=== PATIENT | female | born 1985 | race Caucasian/White ===

== ENCOUNTER → 2017-07-06 | Outpatient (CLI) | payer MEDICAID ==
[~2017-07-06] MED LIST: LORTAB 5/500 501 TAB PO
--- NOTE | 2017-07-08 14:32 | RADIOLOGY REPORT PS360 ---
US BIOPHYSICAL PROFILE, US PREG [id number], US BIOPHYSICAL PROFILE, SD RATIO UMBILICAL ARTERY, S D RATIO UMBILICAL ARTERY: Indication: TWINS HIGH RISK, GROWTH ORDERING PHYSICIAN: Max Mendiola MD PATIENT AGE: 32 years There is a twin gestation. FETUS A: Cephalic presentation with a posterior grade 2 placenta. Respiratory and heart motion identified. Average ultrasound age is 36 weeks 0 days. BPD 36 weeks 2 day, with the 36 weeks 3 days, HC 35 weeks 6 day, abdominal or complex 35 weeks 5 days and FL 35 weeks 5 days. Heart rate is 1 65 bpm. No obvious anomalies demonstrated. There is a three-vessel cord. Umbilical artery evaluation performed with a resistive index of 0.5 and an SD ratio of 2.0. Biophysical profile of fetus A is 8 of 8. Estimated weight 2756 g which is 65th percentile. FETUS B: Breech presentation. Anterior grade 2 placenta. breathing and heart motion noted. Average ultrasound age is 34 weeks 2 days with an estimate weight of 2363 g which is 21 percentile based on last menstrual period. BPD 34 weeks 0 days, OFD 35 weeks 4 days, HC 34 weeks 3 days, abdominal circumference 34 weeks 2 days, FL 34 weeks 2 days. All parameters correlate. Biophysical profile is 8 of 8. Umbilical artery evaluation reveals a resistive index of 0.74 and an SD ratio of 3.8. Three-vessel cord. No obvious anomalies. IMPRESSION: There is a twin gestation. Fetus A is cephalic with an average ultrasound age of 36 weeks 0 days. Fetus B is breech with an average ultrasound age of 34 weeks 2 days. The SD ratio of fetus B is slightly elevated at 3.8. Please see above for detail.
== END ==
LOC: RAD 10:07
DX: Z36.85 Encounter for antenatal screening for Streptococcus B (principal)

== ENCOUNTER 2017-07-25 02:03 | Inpatient (IN) | payer MEDICAID ==
[~2017-07-25] VITALS: Ht 182.9 cm; Wt 94.4 kg
--- OUTSIDE RECORDS SUMMARY | 2017-07-25 02:06 | External Medical Summary Rpt | CCD ---
Author Author , [facility] Organization [employer] Address Unknown Phone [email or web address] Purpose Continuity of Care Document - 01-10-2015 through 2016 Problems Code Diagnosis DOS Provider Status B18.2 Chronic viral hepatitis C E03.9 Hypothyroid ism, unspecified K29.70 Gastritis, unspecified , without bleeding R94.5 Abnormal results of liver function studies Results Labs Lab Lab Date Result Refere Interp Status Commen Order Detail nces retati t Range on Glucose [Presence] in Urine by Test strip --1 hour post 75 g glucose PO (05-06-2017 15:56) Glucose NEGATIV complet 017 E ed [Presen 15:56 ce] in Urine by Test strip Glucose TNP complet 017 ed [Presen 15:56 ce] in Urine by Automat ed test strip Fasting TNP 60mg/ complet 017 dL - ed glucose 15:56 105mg /dL [Mass/v olume] in Serum or Plasma
--- OUTSIDE RECORDS SUMMARY | 2017-07-25 02:06 | External Medical Summary Rpt | CCD ---
Author Author [employer] Organization [employer] Address Unknown Phone Unavailable Purpose Continuity of Care Document - through 2016
--- OUTSIDE RECORDS SUMMARY | 2017-07-25 02:06 | External Medical Summary Rpt | CCD ---
Author Author , [facility] Organization [employer] Address Unknown Phone [email or web address] Purpose Continuity of Care Document - 01-10-2015 [...]
--- OUTSIDE RECORDS SUMMARY | 2017-07-25 02:07 | External Medical Summary Rpt | CCD ---
Demographics Preferred Language Australian Marital Status Unknown Latter Day Affiliation Unknown Race Unknown Ethnic Group Unknown Author Author , [facility] Organization [employer] Address Unknown Phone Immunization Unable to retrieve immunization data due to connection failure with Immunization Registry. Please try again later.
--- OUTSIDE RECORDS SUMMARY | 2017-07-25 02:07 | External Medical Summary Rpt | CCD ---
Demographics Preferred Language Nigerian Marital Status Unknown Uatsdin Affiliation Unknown Race Unknown Ethnic Group Unknown Author Author , [facility] Organization [facility] Address Unknown Phone Immunization Unable to retrieve immunization data due to connection failure with Immunization Registry. Please try again later.
--- OUTSIDE RECORDS SUMMARY | 2017-07-25 02:08 | External Medical Summary Rpt ---
Author Author KAREN Stacie, [employer] Organization [employer] Address Unknown Phone Unavailable Results CBC W Auto Differential panel in Blood Observa Value Referen Units Interpr Notes Date tion ce etation Range Basophils 0 - 0.2 K/MM3 Normal No May 06 informati 2016 3:56 [#/volume on in PM ] in source Blood by data Automated count Basophils 0.1 - 2.0 % Normal No May 06 /100 informati 2017 3:56 leukocyte on in PM s in source Blood by data Automated count Eosinophi 0.0 - 0.4 K/mm3 Normal No May 06 ls informati 2016 3:56 [#/volume on in PM ] in source Blood by data Automated count Eosinophi 0.1 - % Normal No May 06 ls/100 12.0 informati 2016 3:56 leukocyte on in PM s in source Blood by data Automated count Granulocy 1.8 - 7.8 K/mm3 High No May 06 mariah informati 2017 3:56 [#/volume on in PM ] in source Blood by data Automated count Granulocy 37.0 - % Normal No May 06 mariah/100 80.0 informati 2016 3:56 leukocyte on in PM s in source Blood by data Automated count Hematocri 37.0 - % Low No May 06 t [Volume 47.0 informati 2016 3:56 on in PM Fraction] source of Blood data Hemoglobi 12.2 - g/dL Low No May 06 n 16.2 informati 2016 3:56 [Mass/vol on in PM ume] in source Blood data Lymphocyt 0.7 - 4.5 K/mm3 Normal No May 06 es informati 2016 3:56 [#/volume on in PM ] in source Unspecifi data ed specimen by Automated count Lymphocyt 10 - 50.0 % Normal No May 06 es informati 2016 3:56 [#/volume on in PM ] in source Unspecifi data ed specimen by Automated count Erythrocy 27 - 31.2 pg Normal No May 06 te mean informati 2016 3:56 corpuscul on in PM ar source hemoglobi data n [Entitic mass] Erythrocy 31.8 - g/dl Normal No May 06 te mean 35.4 informati 2016 3:56 corpuscul on in PM ar source hemoglobi data n concentra tion [Mass/vol ume] by Automated count Erythrocy 82.2 - fl Normal No May 06 te mean 97.8 informati 2016 3:56 corpuscul on in PM ar volume source [Entitic data volume] by Automated count Monocytes 0.1 - 1.0 K/mm3 Normal No May 06 inform2016 3:56 [#/volume on in PM ] in source Blood by data Automated count Monocytes 1.7 - 9.3 % Normal No May 06 /100 informati 2016 3:56 leukocyte on in PM s in source Blood by data Automated count Platelet 7.4 - fl Normal No May 06 mean 10.4 informati 2016 3:56 volume on in PM [Entitic source volume] data in Blood by Automated count Platelets 142 - 424 K/mm3 Normal No May 06 inform2016 3:56 [#/volume on in PM ] in source Blood data Erythrocy 4.2 - 5.4 M/mm3 Low No May 06 mariah informati 2016 3:56 [#/volume on in PM ] in source Amniotic data fluid Erythrocy 11.5 - % Normal No May 06 te 17.5 informati 2016 3:56 distribut on in PM ion width source [Entitic data volume] by Automated count Leukocyte 4.8 - K/MM3 High No May 06 s 10.8 informati 2016 3:56 [#/volume on in PM ] in source Blood data Glucose [Presence] in Urine by Test strip --1 hour post 75 g glucose PO Observa Value Referen Units Interpr Notes Date tion ce etation Range Glucose No mg/dL No No May 06 [Mass/vol informati informati informati 2016 3:56 ume] in on in on in on in PM Serum or source source source Plasma data data data --1 hour post dose glucose Glucose NEGATIV No mg/ml No No May 06 E informa informa informa 2016 [Presen tion in tion in tion in 3:56 PM ce] in source source source Urine data data data by Test strip Glucose TNP No mg/dL No No May 06 informa informa informa 2016 [Presen tion in tion in tion in 3:56 PM ce] in source source source Urine data data data by Automat ed test strip Fasting TNP 60 - mg/dL No No May 06 105 informa informa 2016 glucose tion in tion in 3:56 PM source source [Mass/v data data olume] in Serum or Plasma AFP Tetra Observa Value Referen Units Interpr Notes Date tion ce etation Range Results REPORT No No No No Mar 11 informa informa informa informa 2017 tion in tion in tion in tion in 3:52 PM source source source source data data data data Alpha-1-F No No No No Mar 11 etoprotei informati informati informati informati 2016 3:52 n on in on in on in on in PM [Mass/vol source source source source ume] in data data data data Serum or Plasma Alpha-1-F No No No No Mar 11 etoprotei informati informati informati informati 2016 3:52 n on in on in on in on in PM [Multiple source source source source of the data data data data median] adjusted in Serum or Plasma Choriogon No No No No Mar 11 adotropin informati informati informati informati 2016 3:52 on in on in on in on in PM [Units/vo source source source source lume] in data data data data Serum or Plasma Choriogon No No No No Mar 11 adotropin informati informati informati informati 2016 3:52 on in on in on in on in PM [Multiple source source source source of the data data data data median] adjusted in Serum or Plasma Estriol.u No No No No Mar 11 nconjugat informati informati informati informati 2016 3:52 ed on in on in on in on in PM [Mass/vol source source source source ume] in data data data data Serum or Plasma Estriol.u No No No No Mar 11 nconjugat informati informati informati informati 2016 3:52 ed on in on in on in on in PM [Multiple source source source source of the data data data data median] adjusted in Serum or Plasma Inhibin A No No No No Mar 11 informati informati informati informati 2017 3:52 [Mass/vol on in on in on in on in PM ume] in source source source source Serum data data data data Inhibin A No No No No Mar 11 informati informati informati informati 2017 3:52 [Multiple on in on in on in on in PM of the source source source source median] data data data data adjusted in Serum Neural No No No No Perico 30 tube informati informati informati informati 2017 3:52 defect on in on in on in on in PM risk in source source source source Fetus data data data data Trisomy No No No No Mar 11 21 risk informati informati informati informati 2017 3:52 in Fetus on in on in on in on in PM source source source source data data data data Second SCREEN No No No No Mar 11 trimest NEGATIV informa informa informa informa 2017 er quad E tion in tion in tion in tion in 3:52 PM source source source source materna data data data data l screen [interp retatio n] in Serum Narrati ve Trisomy No No No No Mar 11 21 risk informati informati informati informati 2017 3:52 based on on in on in on in on in PM maternal source source source source age in data data data data Fetus Trisomy No No No No Mar 11 18 risk informati informati informati informati 2017 3:52 in Fetus on in on in on in on in PM source source source source data data data data Trisomy No No No No Feb 30 18 risk informati informati informati informati 2017 3:52 based on on in on in on in on in PM maternal source source source source age in data data data data Fetus Second COMMENT No No No SCREEN Mar 11 trimest informa informa informa NEGATIV 2017 er quad tion in tion in tion in ETHIS 3:52 PM source source source RESULT materna data data data IS l SCREEN screen NEGATIV [interp E FOR retatio n] in OSB AND Serum Narrati DOWNSYN ve DROME. TRISOMY 18 RISKS CANNOT BE DETERMI MARISOL FOR TWINPRE GNANCIE S. THE AFP MOM AND PATIENT SPECIFI C RISKS ARECALC ULATED BASED ON GESTATI ONAL AGE AND THE CLINICA LINFORM ATION PROVIDE D. SCREENI NG EFFICIE NCY IS DIMINIS HED INTWIN PREGNAN CIES. THIS TEST IDENTIF IES UP TO 48% OF OPENNEU RAL TUBE DEFECTS . CLOSED NEURAL TUBE DEFECTS AND SOMEOPE N DEFECTS MAY NOT BE DETECTE D BY THIS TEST. THE DETECTI ONRATE OF DOWN SYNDROM E OF TWIN PREGNAN CIES HAS NOT BEENDET ERMINED FOR FOUR MARKERS , BUT IS AT LEAST 50% BASED ONTRIPL E SCREEN DATA. THE [place] COLLEGE OF OBSTETR ICIANSA ND GYNECOL OGISTS RECOMME NDS AMNIOCE NTESIS BE OFFERED TOWOMEN AGE 35 AND OLDER. RECALCU LATIONS ARE NOT RECOMME NDEDWHE N GESTATI ONAL DATING BY LMP AND ULTRASO UND ARE WITHIN 10DAYS. Gestation No No No No Mar 11 al age informati informati informati informati 2017 3:52 on in on in on in on in PM source source source source data data data data Gestati KILEY No No No No Mar 11 onal informa informa informa informa 2017 age tion in tion in tion in tion in 3:52 PM method source source source source data data data data Age at No No No No Mar 11 delivery informati informati informati informati 2017 3:52 on in on in on in on in PM source source source source data data data data Mother' CAUCASI No No No No Mar 11 s race AN informa informa informa informa 2017 tion in tion in tion in tion in 3:52 PM source source source source data data data data Body No No No No Mar 11 weight informati informati informati informati 2017 3:52 on in on in on in on in PM source source source source data data data data Insulin NOT No No No No Mar 11 PROVIDE informa informa informa informa 2017 depende D tion in tion in tion in tion in 3:52 PM nt source source source source diabete data data data data s mellitu s [Presen ce] Multipl TWINS No No No No Mar 11 e informa informa informa informa 2017 preganc tion in tion in tion in tion in 3:52 PM y source source source source data data data data Free T3 Observa Value Referen Units Interpr Notes Date tion ce etation Range T3 Free 3.89 2.00 - pg/mL No No Sep 10 4.40 informa informa 2016 tion in tion in 5:39 PM source source data data Free T4 Observa Value Referen Units Interpr Notes Date tion ce etation Range Thyroxi 1.79 0.80 - ng/dL No No Sep 10 ne (T4) 2.00 informa informa 2015 free tion in tion in 5:38 PM [Mass/v source source olume] data data in Serum or Plasma TSH Observa Value Referen Units Interpr Notes Date ti ce etation Range Thyrotr 7.130 0.270 - mcIU/mL High No Apr 05 opin 4.200 informa 2015 [Units/ tion in 7:39 PM volume] source in data Serum or Plasma Free T4 Observa Value Referen Units Interpr Notes Date ti ce etation Range Thyroxi 1.31 0.93 - ng/dL No No Apr 05 ne (T4) 1.70 informa informa 2015 free tion in on in 7:39 PM [Mass/v source source olume] data data in Serum or Plasma Free T3 Observa Value Referen Units Interpr Notes Date ce etation Range T3 Free 3.96 2.00 - pg/mL No No Apr 05 4.40 informa informa 2015 tion in tion in 7:39 PM source source data data HCV [facility] Observa Value Referen Units Interpr Notes Date ti ce etation Range Ordered by an unspecified provider HCV 1a or No No No Cannot Apr 10 Genotyp 1b informa informa a 2015 ing by tion in tion in in further 12:21 PCR source source source PM data data data subtype d into Type 1a or Type 1b due to\\.br\\ high conserv ation of the 5' untrans lated region of the HCV\\.br \\genome . In additio n, Type 6 virus may be misclas sified as\\.br\\ Type 1 in some cases. The Hepatit is C Virus High-Re solutio n\\.br\\G enotype by Sequenc ing test ([facility] test code [id number] )\\.br\\p rovides a higher level of subtype resolut ion.\\.b r\\INTER PRETIVE INFORMA TION: Hepatit is C Genotyp ing\\.br \\Hepati tis C Viral RNA is tested using reverse transcr iption\\ .br\\lizzy ymerase chain reactio n (RT-PCR ) to amplify a specifi c portion \\.br\\of the 5' untrans lated region (5' UTR) of the viral genome. The\\.br \\amplif ied nucleic acid is sequenc ed bi-dire ctional ly using\\. br\\dye- termina tor chemistry physics teacher ry (NABOR). Sequenc ing data is compare d to a\\.br\\d atabase of charact erized sequenc es.\\.br \\Isolat es of hepatit is C virus are grouped into six major genotyp es\\.br\\ (1-6). These genotyp es are subtype d accordi ng to sequenc e\\.br\\c haracte ristics . Due to high conserv ation of the 5' un-almanza slated\\ .br\\reg ion of the HCV genome, this test has limitat ions in\\.br\\ differe ntiatin g subtype 1a from 1b. Therefo re, these subtype s will\\.b r\\be reporte d as 1a or 1b. In rare instanc es, Type 6 virus may be\\.br\\ misclas sified as Type 1.\\.br\\ Test develop ed and charact eristic s determi marisol by [facility]\\.b r\\Labor atories . See Complia nce Stateme nt B: [employer]CS HCV QT GR-[facility] Observa Value Referen Units Interpr Notes Date tion ce etation Range Hepatit 6.0 No log_IU No \\.br\\*H Apr 08 is C informa informa epatiti 2016 RNA tion in tion in s C 10:33 source source Virus AM data data Genotyp e by Sequenc ing will be added.\\ .br\\INT ERPRETI VE INFORMA TION: Hepatit is C Virus by Quantit ative PCR\\.br \\The quantit ative range of this assay is 1.2 - 8.0 log IU/mL (15-\\.b r\\100,0 00,000 IU/mL). \\.br\\Li diann of detecti on (LOD):\\ .br\\15 IU/mL (1.2 log IU/mL)\\ .br\\LOD values do not apply to diluted specime ns.\\.br \\An interpr etation of "Not Detecte d" does not rule out the presenc e\\.br\\o f PCR inhibit ors in the patient specime n or hepatit is C virus RNA\\.br \\concen tration s below the level of detecti on of the test. Care\\.b r\\shoul d be taken when interpr eting any single viral load\\.b r\\deter minatio n.\\.br\\ This test should not be used for blood donor screeni ng, associa esther\\.br \\re-ent ry protoco ls, or for screeni ng Human Cell, Tissues and\\.br \\Cellul ar Tissue- Based Product s (HCT/P) . HCV 900,000 No IU/mL No No Apr 08 IU-[facility] informa informa informa 2016 tion in tion in on in 10:33 source source source AM data data data HCV RNA Detecte Not No Abnorma No Apr 08 d Detecte informa l informa 2016 Interpr d tion in in 10:33 etation source source AM data data EER HCV See No No No To Apr 08 RNA Note informa informa informa downloa 2016 Qnt tion in in tion in d an 10:33 w/Genot source source source enhance AM ype data data data d Reflx-A report [facility]UP for this test go to:\\.br \\https: //erpt. [employer]\\.b r\\UserN abhi=B!o 6-3\\.br \\Passwo rd=pD-3 A=9 HCV [facility]il[facility] Observa Value Referen Units Interpr Notes Date tion ce etation Range HCV 1a or No No No Cannot Perico 9 Genotyp 1b informa informa informa be 2014 ing by tion in ti in in further 8:12 PM PCR source source source data data data subtype d into Type 1a or Type 1b due to\\.br\\ high conserv ation of the 5' untrans lated region of the HCV\\.br \\genome . In additio n, Type 6 virus may be misclas sified as\\.br\\ Type 1 in some cases. The Hepatit is C Virus High-Re solutio n\\.br\\G enotype by Sequenc ing test ([facility] test code [id number] )\\.br\\p rovides a higher level of subtype resolut ion.\\.b r\\INTER PRETIVE INFORMA TION: Hepatit is C Genotyp ing\\.br \\Hepati tis C Viral RNA is tested using reverse transcr iption\\ .br\\lizzy ymerase chain reactio n (RT-PCR ) to amplify a specifi c portion \\.br\\of the 5' untrans lated region (5' UTR) of the viral genome. The\\.br \\amplif ied nucleic acid is sequenc ed bi-dire ctional ly using\\. br\\dye- termina tor chemistry physics teacher ry (NABOR). Sequenc ing data is compare d to a\\.br\\d atabase of charact erized sequenc es.\\.br \\Isolat es of hepatit is C virus are grouped into six major genotyp es\\.br\\ (1-6). These genotyp es are subtype d accordi ng to sequenc e\\.br\\c haracte ristics . Due to high conserv ation of the 5' un-almanza slated\\ .br\\reg ion of the HCV genome, this test has limitat ions in\\.br\\ differe ntiatin g subtype 1a from 1b. Therefo re, these subtype s will\\.b r\\be reporte d as 1a or 1b. In rare instanc es, Type 6 virus may be\\.br\\ misclas sified as Type 1.\\.br\\ Test develop ed and charact eristic s determi marisol by [facility]\\.b r\\Labor atories . See Complia nce Stateme nt B: [employer]CS HCV QT GR-[facility] Observa Value Referen Units Interpr Notes Date tion ce etation Range Hepatit 5.8 No log_IU No \\.br\\*H Feb 6 is C informa informa epatiti 2014 RNA tion in tion in s C 7:02 PM source source Virus data data Genotyp e by Sequenc ing will be added.\\ .br\\INT ERPRETI VE INFORMA TION: Hepatit is C Virus by Quantit ative PCR\\.br \\The quantit ative range of this assay is 1.2 - 8.0 log IU/mL (15-\\.b r\\100,0 00,000 IU/mL). \\.br\\Li diann of detecti on (LOD):\\ .br\\15 IU/mL (1.2 log IU/mL)\\ .br\\LOD values do not apply to diluted specime ns.\\.br \\An interpr etation of "Not Detecte d" does not rule out the presenc e\\.br\\o f PCR inhibit ors in the patient specime n or hepatit is C virus RNA\\.br \\concen tration s below the level of detecti on of the test. Care\\.b r\\shoul d be taken when interpr eting any single viral load\\.b r\\deter minatio n.\\.br\\ This test should not be used for blood donor screeni ng, associa esther\\.br \\re-ent ry protoco ls, or for screeni ng Human Cell, Tissues and\\.br \\Cellul ar Tissue- Based Product s (HCT/P) . HCV 640,000 No IU/mL No No Perico 6 IU-[facility] informa informa informa 2015 tion in tion in tion in 7:02 PM source source source data data data HCV RNA Detecte Not No Abnorma No Perico 6 d Detecte informa l informa 2014 Interpr d tion in tion in 7:02 PM etation source source data data EER HCV See No No No To Feb 6 RNA Note informa informa informa downloa 2015 Qnt tion in tion in tion in d an 7:02 PM w/Genot source source source enhance ype data data data d Reflx-A report [facility] for this test go to:\\.br \\https: //erpt. [employer]\\.b r\\UserN abhi=g+6 TMq!\\.b r\\Passw ord=dQ- 5C4b Free T3 Observa Value Referen Units Interpr Notes Date tion ce etation Range T3 Free 4.14 2.00 - pg/mL No No Feb 3 4.40 informa informa 2014 tion in tion in 5:13 PM source source data data Free T4 Observa Value Referen Units Interpr Notes Date tion ce etation Range Thyroxi 1.22 0.93 - ng/dL No No Perico 3 ne (T4) 1.70 informa informa 2014 free tion in tion in 5:13 PM [Mass/v source source olume] data data in Serum or Plasma TSH Observa Value Referen Units Interpr Notes Date tion ce etation Range Thyrotr 6.650 0.270 - mcIU/mL High No Perico 3 opin 4.200 informa 2014 [Units/ tion in 5:11 PM volume] source in data Serum or Plasma Vit D 25-OH Observa Value Referen Units Interpr Notes Date tion ce etation Range Vitamin 40.4 30.0 - ng/mL No INTERPR January 11 D-25 120.0 informa ETIVE 2015 OH tion in INFORMA 2:37 PM source TION: data Vitamin D, 25-Hydr oxy\\.br \\\\.br\\< 20 ng/mL Deficie ncy\\.br \\20 - 29 ng/mL Insuffi ciency\\ .br\\30 - 80 ng/mL Optimum Level\\. br\\>120 ng/mL Possibl e Toxicit y\\.br\\\\ .br\\NOT E: For infants and childre n up to 17 years of age, the optimum level is >=20 ng/mL. This assay accurat [place] quantif ies the sum of vitamin D3, 25-Hydr oxy and vitamin D2, 25-Hydr oxy. Hep Prf-Ac Observa Value Referen Units Interpr Notes Date tion ce etation Range Hepatit Negativ Negativ No No No January 11 is B e e informa informa informa 2015 virus tion in tion in tion in 10:41 surface source source source AM Ag data data data [Presen ce] in Serum by Immunoa ssay Hep B Negativ Negativ No No No January 11 Core e e informa informa informa 2015 IgM tion in tion in tion in 10:40 source source source AM data data data Hepatit Negativ Negativ No No No January 11 is A e e informa informa informa 2015 virus tion in tion in tion in 10:40 Ab source source source AM [Units/ data data data volume] in Serum by Radioim munoass ay (KIRK) Hep C Positiv Negativ No Abnorma High January 11 Ab e e informa l / 2014 tion in cutoff 10:46 source ratio AM data (>= 5, Archite ct Anti-HC V). [facility] are Laborat ory recomme nds collect ing a new specime n and testing for Hepatit is C RNA Quantit ative PCR to confirm positiv ity and provide a baselin e viral load for monitor ing treatme nt efficac y. Glyco Observa Value Referen Units Interpr Notes Date tion ce etation Range Hemoglo 5.4 <=7.0 % No Initial January 11 bin informa 2015 A1c/Hem tion in Diagnos 9:40 AM oglobin source tic .total data Criteri in a\\.br\\< Blood 5.7 % Normal\\ .br\\5.7 - 6.4 % At risk for diabete s mellitu s\\.br\\> = 6.5 % Consist ent with diabete s mellitu s\\.br\\\\ .br\\Kaylene betes monitor ing\\.br \\Target Value (ADA recomme nded): < 7 % B12/ FA Observa Value Referen Units Interpr Notes Date tion ce etation Range CYANOCO 801 211 - pg/mL No No January 10 BALAMIN 946 informa informa 2015 .TRUE tion in tion in 6:23 PM source source data data Folic 8.12 4.50 - ng/mL No No January 10 Acid 37.30 informa informa 2015 Lvl tion in tion in 6:23 PM source source data data Iron/UIBC Observa Value Referen Units Interpr Notes Date tion ce etation Range Iron 117 30 - mcg/dL No No January 10 [Mass/v 160 informa informa 2015 olume] tion in tion in 6:10 PM in source source Serum data data or Plasma UIBC 254 112 - mcg/dL No No January 10 347 informa informa 2015 tion in tion in 6:10 PM source source data data Transfe 32 20 - 50 % No No January 10 rrin informa informa 2015 Sat tion in tion in 6:10 PM source source data data Lipid Scr Observa Value Referen Units Interpr Notes Date tion ce etation Range Cholest 187 <=200 mg/dL No < 200 January 10 cher informa 2015 [Percen tion in 6:09 PM tile] source Desirab data le\\.br\\ 200 - 239 Borderl ine High\\.b r\\>= 240 High TRIGLYC 143 <=150 mg/dL No < 150 January 10 ERIDES. informa 2015 TOTAL tion in Normal\\ 6:09 PM source .br\\150 data - 199 Borderl ine High\\.b r\\200 - 499 High\\.b r\\ >= 500 Very High CHOLEST 43 >=40 mg/dL No > 60 January 10 EROLS.I informa 2014 N HDL tion in Optimal 6:09 PM source \\.br\\40 data - 60 Accepta ble\\.br \\ < 40 Low LDL 115 <=100 mg/dL High < 100 January 10 Calcula 2014 esther 6:09 PM Optimal \\.br\\10 0 - 129 Near or above optimal \\.br\\13 0 - 159 Borderl ine High\\.b r\\160 - 189 High\\.b r\\ >= 190 Very High TSH Observa Value Referen Units Interpr Notes Date tion ce etation Range Thyrotr 4.620 0.270 - mcIU/mL High No January 10 opin 4.200 informa 2014 [Units/ tion in 6:09 PM volume] source in data Serum or Plasma Auto Diff Observa Value Referen Units Interpr Notes Date tion ce etation Range Neutrop 65.0 No % No No January 10 hils informa informa informa 2014 [#/volu tion in tion in tion in 5:48 PM me] in source source source Blood data data data by Automat ed count Lymphoc 27.1 No % No No January 10 ytes informa informa informa 2014 [#/volu tion in tion in tion in 5:48 PM me] in source source source Blood data data data by Automat ed count Monocyt 5.3 No % No No January 10 es informa informa informa 2014 [#/volu tion in tion in tion in 5:48 PM me] in source source source Blood data data data by Automat ed count Eos 1.8 No % No No January 10 Percent informa informa informa 2014 tion in tion in tion in 5:48 PM source source source data data data Baso 0.8 No % No No January 10 Percent informa informa informa 2015 tion in tion in tion in 5:48 PM source source source data data data Neut# 5.1 1.8 - x10(3)/ No No January 10 7.7 mcL informa informa 2015 tion in tion in 5:48 PM source source data data Lymph# 2.1 0.6 - x10(3)/ No No January 10 4.8 mcL informa informa 2014 tion in tion in 5:48 PM source source data data [place]# 0.4 0.0 - x10(3)/ No No January 10 1.3 mcL informa informa 2014 tion in tion in 5:48 PM source source data data Eos# 0.1 0.0 - x10(3)/ No No January 10 0.5 mcL informa informa 2014 tion in tion in 5:48 PM source source data data Baso# 0.1 0.0 - x10(3)/ No No January 10 0.2 mcL informa informa 2015 tion in tion in 5:48 PM source source data data CBC Observa Value Referen Units Interpr Notes Date tion ce etation Range LEUKOCY 7.8 4.0 - x10(3)/ No No January 10 MARIAH 11.0 mcL informa informa 2014 tion in tion in 5:48 PM source source data data Erythro 5.03 3.80 - x10(6)/ No January 10 cytes 5.10 mcL informa informa 2014 [#/volu tion in tion in 5:48 PM me] in source source Blood data data by Automat ed count Hemoglo 15.1 12.0 - gm/dL No January 10 bin 15.6 informa informa 2014 [Mass/v tion in tion in 5:48 PM olume] source source in data data Blood Hematoc 42.9 35.7 - % No January 10 rit 45.9 informa informa 2014 [Volume tion in tion in 5:48 PM source source Fractio data data n] of Blood by Automat ed count Erythro 85.3 82.5 - fL No January 10 cyte 99.8 informa informa 2014 mean tion in tion in 5:48 PM corpusc source source ular data data volume [Entiti c volume] by Automat ed count Erythro 29.9 27.0 - pg No No January 10 cyte 34.3 informa informa 2014 mean tion in tion in 5:48 PM corpusc source source ular data data hemoglo bin [Entiti c mass] by Automat ed count Erythro 35.1 32.1 - gm/dL No January 10 cyte 35.3 informa informa 2015 mean tion in tion in 5:48 PM corpusc source source ular data data hemoglo bin concent ration [Mass/v olume] by Automat ed count Erythro 12.6 11.5 - % No No January 10 cyte 15.0 informa informa 2015 distrib tion in tion in 5:48 PM ution source source width data data [Ratio] by Automat ed count Platele 304 144 - x10(3)/ No No January 10 ts 423 mcL informa informa 2015 [#/volu tion in tion in 5:48 PM me] in source source Blood data data by Automat ed count MPV 8.9 6.8 - fL No No January 10 10.8 informa informa 2015 tion in tion in 5:48 PM source source data data
--- OUTSIDE RECORDS SUMMARY | 2017-07-25 02:08 | External Medical Summary Rpt ---
[...] solutio n\\.br\\G enotype by Sequenc ing test ([facility] test code [id number] )\\.br\\p rovides a higher level of subtype [...] bi-dire ctional ly using\\. br\\dye- termina tor cosmetic chemist ry (NAB[place]). Sequenc ing data is compare [...] . See Complia nce Stateme nt B: [employer]/CS HCV QT GR-[facility] Observa Value Referen Units [...] for this test go to:\\.br \\https: //erpt. [employer]\\.b r\\UserN abhi=B!o 6-3\\.br \\Passwo rd=pD-3 A=9 HCV [...] by Sequenc ing test ([facility] test code [id number] )\\.br\\p rovides a higher level of subtype [...] bi-dire ctional ly using\\. br\\dye- termina tor cosmetic chemist ry ([place]). Sequenc ing data is compare [...] . See Complia nce Stateme nt B: [employer]/CS HCV QT GR-ARUP Observa Value Referen Units [...] for this test go to:\\.br \\https: //erpt. [employer]\\.b r\\UserN abhi=g+6 TMq!\\.b r\\Passw ord=dQ- 5C4b Free [...] data (>= 5, Archite ct Anti-HC V). [facility] are Laborat ory recomme nds collect ing [...] in 5:48 PM source source data data [place]# 0.4 0.0 - x10(3)/ No No January [...]
[2017-07-25 05:25] VITALS: BP 112/70
[2017-07-25] MEDS ORDERED: PRENATAL PLUS1 TA1 PO (05:34)
[2017-07-25] MEDS ORDERED: IRON TABLETS325 MG PO (05:34)
[2017-07-25] MEDS ORDERED: LEVOTHYROXIN0.075 M1 PO (05:35)
[2017-07-25 05:47] LABS: HEMOGLOBIN 10.4 g/dL (12.2-16.2); LYMPH # 2.8 K/mm3 (0.7-4.5); LYMPH % 25.1 % (10-50.0)
[2017-07-25 05:52] LABS: URINE BILIRUBIN - DIPSTICK NEGATIVE (NEG); URINE BLOOD NEGATIVE (NEG)
[2017-07-25 05:53] LABS: URINE SQUAMOUS CELLS 50-100 #/hpf (0-5)
[2017-07-25 05:58] LABS: AMPHETAMINES/METAMPHETAMINES NEGATIVE ng/mL (<1000)
[2017-07-25 06:37] LABS: ABO BLOOD TYPE A; RH BLOOD TYPE POSITIVE
[2017-07-25 08:13] LABS: URINE BILIRUBIN - DIPSTICK NEGATIVE (NEG); URINE BLOOD NEGATIVE (NEG)
--- NOTE | 2017-07-25 08:18 | Anesthesia Record ---
Anesthesia Record Part I Total IV fluids: 1800 EBL (ml): 600 Urine Output: 300 B/P: 111/64 % SaO2: 94 Pulse: 99 Resps: 12 Temp: 97.2 Patient is: Awake, Stable Stable to PACU at: 0815 at 0817
--- NOTE | 2017-07-25 08:19 | Anesthesia Record ---
Anesthesia Record Part II Discharge time: 08 Destination: OB PACU nurse assessment review? Yes Patient is: Awake, Stable Anesthesia complications? No at 0818
--- NOTE | 2017-07-25 08:25 | Operative Note ---
Procedure/Operative Record Date of Procedure: 07/25/17 Referring physician: Dr. Gill Pre-op diagnosis: 1. Term intrauterine with twins. 2. Malpresentation. 3. Desire for sterilization. Post-op diagnosis: 1. Term intrauterine with twins. 2. Malpresentation. 3. Desire for sterilization. Twin A: 9/9, 6 lb. 4 oz., 20 inch male , born at 0737 Twin B: 8/9, 5 lb. 8 oz., 18 inch female (breech extraction), with nuchal cord 2, born at 0738. Procedure performed: Primary low transverse cervical section with twin delivery, bilateral tubal ligation. Surgeon: Max Mendiola Machinist Bench(s): Dr. Richter Anesthesia: Spinal, STAVE LOG CUT OFF SAW OPERATOR Charlotte Indications: 1. Term intrauterine with twins. 2. Malpresentation. 3. Desire for sterilization. Description of procedure: After the patient was prepped and draped in usual fashion and spinal anesthesia was administered, a low Pfannenstiel incision was made across the midline, and the fat and fascia were in the usual fashion, bleeders being clamped and coagulated along the way. The peritoneum was entered with a knife, and extended above and below with Metzenbaum scissors. The bladder peritoneum was sharply and bluntly dissected free, and the bladder was protected with a bladder blade. The uterus was entered in low transverse fashion with a knife, and the incision was extended bluntly, bilaterally. The amniotic sac of twin A was ruptured for clear fluid, and twin A was found to be in the LOT position of the vertex. With appropriate fundal pressure, the head was easily delivered. The baby's naso-and oropharynx were bulb suctioned, and the baby cried spontaneously on the abdomen, as was delivered. The cord was clamped and cut and identified with a single cord clamp as twin A, 3 vessels were noted to be within the cord, and cord blood was obtained. The cord pH of twin A was 7.35. The baby was handed to the arms of the attending pediatricians, who assigned Apgars of 9 at 1 minute and 9 at 5 minutes to this and 4 ounce, 20 inch male , born at 0737. The amniotic sac of twin B was then ruptured for clear fluid. Twin B was found to be in a double footling breech presentation, and was easily delivered by breech extraction with appropriate fundal pressure. There was a nuchal cord 2, which was easily reduced. The baby's naso-and oropharynx were bulb suctioned, and the baby cried spontaneously on the abdomen, as was delivered. The cord was clamped and cut and identified with 2 cord clamps as twin B, 3 vessels were noted to be within the cord, and cord blood was obtained. The cord pH of twin B was 7.37. The baby was handed into the arms of the other attending public address technician, who assigned Apgars of 8 at 1 minute and 9 at 5 minutes to this 5 lbs. 8 oz., 18 inch female infant, born at 0738. Both babies were taken to the nursery in excellent condition, along with the father, been present in the operating room. The placentas were delivered manually, intact, and submitted to pathology. It should be noted that there was no meconium associated with either baby. A ring forceps was used to assure adequate drainage to the cervix; this was then passed off the field, as an unsterile instrument. The uterus was closed in 2 layers, the first a running locked suture of #1 Vicryl as an endometrial layer, and the second a running unlocked suture of #1 Vicryl as a myometrial layer, imbricating over the first. The bladder peritoneum was closed with a running unlocked suture of 2-0 Vicryl. Blood and clots within swept from the gutters, and the tubes and ovaries were inspected and found to be normal. The patient was again asked if she wished to proceed with tubal sterilization, and she concurred. Therefore, first the RIGHT tube and then the LEFT was grasped in its midsection, and the base of the tented up portion of each tube was crushed with a Megan clamp and ligated with 2-0 Vicryl. The intervening segment of each tube was excised with Metzenbaum scissors, and the stumps coagulated with a Bovie. There was no undue bleeding, no was there any other pathology. The peritoneum was grasped with 3 Megan clamps, and closed with a running semi-locked suture of 0 Vicryl. The muscle was approximated with a running unlocked suture of 0 Vicryl. The fascia was closed with a running locked suture of #1 Vicryl. The subcutaneous fat and Ramona's fascia were closed with a running unlocked suture of 2-0 Vicryl. The skin was closed with a subcuticular suture of 3-0 Vicryl, and appropriately dressed. The sponge and needle counts correct. The urine was clear in the Fitzgerald catheter. The estimated blood loss was 400 mL. A pelvic examination at the close of the procedure express blood and clots from the involuting uterus, with IV Pitocin running. The patient tolerated the procedure well, and was taken to PACU in excellent condition. Her blood type is A positive. Her rubella titer is immune. She plans to bottlefeed. It should be noted that the patient is group B strep positive, and was given preoperative antibiotics. EBL (ml): 400 Complications: None Specimens: Bilateral tubal segments at 0824
[2017-07-25 08:55] VITALS: BP 138/60
--- NOTE | 2017-07-25 14:47 | ACUTE CARE PROGRESS NOTE (QUA) ---
Progress Notes Subjective Date 07/25/17 Time 1446 Note This is day of surgery and delivery. The patient and both babies are doing well. She is afebrile. Vital signs stable. Wound clean. Abdomen soft. Lochia normal. Uterine fundus involuting well. Impression: Stable. Assessment/Plan This inpt stay is expected to cross 2 MNs from start of care Yes () at 1443
[2017-07-25 21:45] VITALS: BP 104/62
[2017-07-26 00:48] VITALS: BP 124/63
--- NOTE | 2017-07-26 05:35 | ACUTE CARE PROGRESS NOTE (QUA) ---
Progress Notes Subjective Date 07/26/17 Time 0534 Note This is /postop day number 1. The patient is afebrile. Vital signs stable. Wound clean. Abdomen soft. Lochia normal. Uterine fundus involuting well. The babies are doing well. Impression: Stable. Assessment/Plan This inpt stay is expected to cross 2 MNs from start of care Yes () at 0551
[2017-07-26 07:54] LABS: HEMOGLOBIN 8.5 g/dL (12.2-16.2)
[2017-07-26 09:42] VITALS: BP 101/50
--- NOTE | 2017-07-26 11:22 | PHARMACY CLINIC NOTE ---
Patient Demographics Patient Demographics Admission date: 07/25/17 Date: 07/26/17 Time: 1121 Allergies Coded Allergies: No Known Allergies (07/25/17) HEIGHT- FT: 6 IN: 0.00 K.405 VTE General Information Labs: Laboratory Tests 07/26 0645 Hematology Hgb (12.2 - 16.2 g/dL) 8.5 L Hct (37.0 - 47.0 %) 25.7 L Disclaimer The following section includes nursing documentation that has been pulled in for pharmacy review. VTE prophylaxis NQF [id number] VTE prophylaxis ordered? Yes Type of prophylaxis/treatment: ICD (POST OP) at 1122
--- NOTE | 2017-07-26 15:20 | ACUTE CARE PROGRESS NOTE (QUA) ---
Progress Notes Subjective Date 07/26/17 Time 1519 Note The patient is afebrile. Vital signs stable. Wound clean. Abdomen soft. Lochia normal. Uterine fundus involuting well. Hemoglobin 8.5 g, but clinically stable. Impression: Stable. Assessment/Plan This inpt stay is expected to cross 2 MNs from start of care Yes () at 1520
[2017-07-26 20:15] VITALS: BP 153/99
--- NOTE | 2017-07-27 07:58 | ACUTE CARE PROGRESS NOTE (QUA) ---
Progress Notes Subjective Date 07/27/17 Time 0758 Note This is and postop day number 2. The patient is afebrile. Vital signs stable. Wound clean. Abdomen soft. Lochia normal. Uterine fundus involuting well. Impression: Stable. Assessment/Plan This inpt stay is expected to cross 2 MNs from start of care Yes () at 0758
[2017-07-27 08:27] VITALS: BP 132/68
[2017-07-27 20:17] VITALS: BP 122/59
--- NOTE | 2017-07-28 06:22 | ACUTE CARE PROGRESS NOTE (QUA) ---
Progress Notes Subjective Date 07/28/17 Time 0621 Note This is /postop day number 3. The patient is afebrile. Vital signs stable. Wound clean. Abdomen soft. Lochia normal. Uterine fundus is involuting well. Hemoglobin 8.5 g, but clinically stable. She will be discharged today. Assessment/Plan This inpt stay is expected to cross 2 MNs from start of care Yes () at 0622
[2017-07-28] MEDS ORDERED: TORADOL10 MG PO (06:25)
--- NOTE | 2017-07-28 06:31 | DISCHARGE SUMMARY STANDARD ---
Discharge Summary Date of admission: 07/25/17 Date of discharge: 07/28/17 Patient condition: Stable Discharge diagnosis (es): 1. Term intrauterine (twins). 2. Anemia 0.3. Desire for sterilization. Hospital course: This 32-year-old 2, now para 2, AB 0 white female was admitted at 37-6/7 weeks with known twins. Her hemoglobin on admission was 10.4 g. She was also known to be group B strep positive, and was given antibiotics preoperatively. On the date of admission she was taken to the operating room, where she underwent a primary low transverse cervical section and bilateral tubal ligation, without complications. Baby A was an 9/9, 6 lbs. 4 oz., 20 inch male , born at 0737 on 07/25/17. Baby B was an 8/9, 5 lbs. 8 oz., 18 inch female , born at 0738 on 07/25/17. Both babies are bottlefeeding, and the male infant has been circumcised. Both are doing well. and postoperatively, the patient has done well. She is eating and ambulating, and has had a bowel movement. Her wound is clean. Her abdomen is soft. Her lochia is normal. Her uterine fundus has involuted well. Her hemoglobin is 8.5 g, but she is clinically stable. She is a smoker, but refuses smoking cessation patches. She is discharged home on the third /postoperative day on iron 3 times a day, and vitamins once a day. She is given a prescription for Toradol 10 mg ( number 20), 1 by mouth every 8 hours when necessary pain. She is given appropriate instructions as to diet, exercise, and wound care, and she is to return the office in 2 weeks for follow-up. Her blood type is A positive. Her rubella titer is immune. at 9591
[2017-07-28 08:29] VITALS: BP 115/58
== END 2017-07-28 09:20 | disposition home or self-care (01) | DRG 765 ==
LOC: OB 02:03
PROVIDERS: Obstetrics & Gynecology
PROC: 10D00Z1 Extraction of Products of Conception, Low, Open Approach (ICD-10-PCS; principal; 2017-07-25 07:30)
PROC: 0UB70ZZ Excision of Bilateral Fallopian Tubes, Open Approach (ICD-10-PCS; principal; 2017-07-25 07:30)
DX: O32.1XX1 Maternal care for breech presentation, fetus 1 (principal); O30.043 Twin pregnancy, dichorionic/diamniotic, third trimester; Z37.2 Twins, both liveborn; Z3A.37 37 weeks gestation of pregnancy; Z30.2 Encounter for sterilization